=== PATIENT | female | born 1965 | race Caucasian/White ===

== ENCOUNTER 2018-11-07 14:06 | Emergency (ER) | payer MEDICAID ==
[~2018-11-07] VITALS: Ht 162.6 cm; Wt 118.0 kg
[~2018-11-07 14:06] MED LIST: CARI350T PO; CLON-528 PO; DESV50TA; PHEN10TA PO; TRIH2TAB3 PO; ZOF4T PO
[2018-11-07 14:21] VITALS: BP 107/66
--- NOTE | 2018-11-07 14:58 | NUR ---
pt seen and dc'd by provider
== END 2018-11-07 14:58 | disposition home or self-care (01) ==
LOC: ER 14:06
DX: M25.572 Pain in left ankle and joints of left foot (principal); G43.909 Migraine, unspecified, not intractable, without status migrainosus; I10 Essential (primary) hypertension; Z56.0 Unemployment, unspecified; Z98.890 Other specified postprocedural states; Z79.899 Other long term (current) drug therapy
CPT/HCPCS: 99281